=== PATIENT | male | born 1945 | race Caucasian/White ===

== ENCOUNTER 2019-03-04 12:16 | Emergency (ER) | payer OTHER ==
[2019-03-04 12:25] VITALS: TEMP 97.5; BMI 26.4
--- NOTE | 2019-03-04 13:20 | PDOC ---
History of Present Illness - History of Present Illness Initial Comments: 03/04/19 13:21 73 year old man with a history of distant prostate cancer (post resection) who presents with 3 days of swelling and skin change in the L lower extremity from knee to ankle. 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 He does not have good follow up with primary care and has not seen a doctor in years and takes no medications. However today he was concerned as his calf had some pain that he went to his PCP Dr. Shah who was concerning for dvt vs thrombophelbitis and sent him to the ER. THe kumar has no other ocmplaints at this [facility] ROS GENERAL/CONSTITUTIONAL: No fever or chills. No weakness. HEAD, EYES, EARS, NOSE AND THROAT: No change in vision. No ear pain or discharge. No sore throat. CARDIOVASCULAR: No chest pain or shortness of breath RESPIRATORY: No cough, wheezing, or hemoptysis. GASTROINTESTINAL: No nausea, vomiting, diarrhea or constipation. GENITOURINARY: No dysuria, frequency, or change in urination. MUSCULOSKELETAL: + joint or muscle swelling or pain. No neck or back pain. SKIN: No rash PE GENERAL: Awake, alert, and fully oriented, in no acute distress HEAD: No signs of trauma, normocephalic, atraumatic EYES: EOMI, sclera anicteric, conjunctiva clear ENT: oropharynx clear without exudates. Moist mucosa NECK: Normal ROM, supple LUNGS: No distress, speaks full sentences, clear to auscultation bilaterally HEART: Regular rate and rhythm, normal S1 and S2, no murmurs, rubs or gallops, peripheral pulses normal and equal bilaterally. ABDOMEN: Soft, nontender, normoactive bowel sounds. No guarding, no rebound. No masses EXTREMITIES : + good popliteal and dorsalis pedis pulses, some darkening of the skin around the medial heel, + mild tenderness to mid tibial bone palpation, nv intact NEUROLOGICAL: Cranial nerves II through XII grossly intact. Normal speech, normal gait, no focal sensorimotor deficits SKIN: Warm, Dry, normal turgor, no rashes or lesions noted MDM DDX including but not limited to: dvt vs thrombophlebitis r/o fx ED Course: NV intact with some skin changes, swellling and pain will duplex and do basic bloods labs wnl duplex with complex mac cyst on L popliteal he has good popliteal pulse will d./c with pcpc and vascular f/u Daughter present as bedside now. Expresses concern over possible cardiac pathology Patient reports a history of year or more of shortness of breath that has not acutely worsened but has remained the same. Per daughter she is concerned that his symptoms are worsening and requests a cardiac workup. Dr. Shah called and informed of patient family concerns, reports EKG done this morning had no ischemic changes. Family persistently concerned. Will pursue ekg, trop add on and ekg Ekg: with sinus rhythm at 71bpm, L anterior fasc block, no ST elevations Patient daughter continues to express concern although patient is asymptomatic and wants patient to be admitted Dr. Shah called for admission. He does not feel admission is appropririate but given patient family concern agrees to CTA chest and D-dimer. If negative patient to follow up outpatient. Family agrees to this plan. Trop negative CXR with no acute pathology XR tib fib- negative d-dimer with mild elevation pending CTA chest Rula Dumas, PGY2 Emergency Medicine <Rula Dumas - Last Filed: 03/04/19 18:51> <Isatu Pearson - Last Filed: 03/04/19 20:35> - General Chief Complaint: Pain Stated Complaint: LF LEG PAIN Time Seen by Provider: 03/04/19 13:19 Past History - Past Medical History COPD: No - Immunization History Immunization Up to Date: Yes - Psycho Social/Smoking Cessation Hx Smoking History: Never smoked Have you smoked in the past 12 months: No Information on smoking cessation initiated: No Hx Alcohol Use: No Drug/Substance Use Hx: No <Rula Dumas - Last Filed: 03/04/19 18:51> <Isatu Pearson - Last Filed: 03/04/19 20:35> - Past Medical History Allergies/Adverse Reactions: Allergies Allergy/AdvReac Type Severity Reaction Status Date / Time No Known Allergies Allergy Verified 03/04/19 12:21 Home Medications: Ambulatory Orders NK [No Known Home Medication] 03/04/19 *Physical Exam - Vital Signs Last Vital Signs Temp Pulse Resp BP Pulse Ox 97.5 F L 73 18 131/89 95 03/04/19 12:21 03/04/19 12:21 03/04/19 12:21 03/04/19 12:21 03/04/19 12:21 <Rula Dumas - Last Filed: 03/04/19 18:51> - Vital Signs Last Vital Signs Temp Pulse Resp BP Pulse Ox 97.5 F L 71 17 127/71 95 03/04/19 12:21 03/04/19 16:49 03/04/19 16:49 03/04/19 16:49 03/04/19 16:49 <Isatu Pearson - Last Filed: 03/04/19 20:35> ED Treatment Course - LABORATORY CBC & Chemistry Diagram: 03/04/19 14:40 03/04/19 14:40 <Rula Dumas - Last Filed: 03/04/19 18:51> - LABORATORY CBC & Chemistry Diagram: 03/04/19 14:40 03/04/19 14:40 - ADDITIONAL ORDERS Additional order review: Laboratory Results 03/04/19 03/04/19 17:50 14:40 D-Dimer 612 H Sodium 139 Potassium 4.7 Chloride 108 H Carbon Dioxide 26 Anion Gap 5 L BUN 17.3 Creatinine 1.0 Est GFR (CKD-EPI)AfAm 86.76 Est GFR (CKD-EPI)NonAf 74.86 Random Glucose 90 Calcium 9.1 Total Bilirubin 0.6 AST 28 ALT 26 Alkaline Phosphatase 63 Troponin I < 0.02 Total Protein 6.7 Albumin 3.8 03/04/19 14:40 RBC 4.72 MCV 89.9 MCHC 34.8 RDW 12.9 MPV 7.1 L Neutrophils % 59.8 Lymphocytes % 28.1 Monocytes % 8.5 Eosinophils % 2.6 Basophils % 1.0 <Isatu Pearson - Last Filed: 03/04/19 20:35> Discharge - Discharge Information Problems reviewed: Yes - Admission No <Rula Dumas - Last Filed: 03/04/19 18:51> <Isatu Pearson - Last Filed: 03/04/19 20:35> - Discharge Information Clinical Impression/Diagnosis: Leg swelling Condition: Stable Disposition: HOME - Follow up/Referral Referrals: Juancho Shah MD [Primary Care Provider] - Charan Sandoval MD [Staff Physician] - Ronaldo Leigh MD [Non Staff, Medical] - - Patient Discharge Instructions Patient Printed Discharge Instructions: DI for Mac's Cyst Additional Instructions: You were seen in the ED for complaints of leg swelling and pain In the ED you were evaluated with labwork and ultrasound Your results showed normal blood work and a mac cyst The results of the CT scan were provided to you, there is no evidence of PE or any other problems. There does not appear to be an acute need for immediate hospitalization. You are advised to follow up with your Primary Care Physician within 1 week. You were given a referral to Vascular Surgery Return to the ED immediately if you experience worsening leg pain or swelling, numbness or tingling or any other concerning symptoms - Post Discharge Activity
[2019-03-04 14:49] LABS: EOS % 2.6 % (0-4.5); HEMATOCRIT 42.4 % (35.4-49); HEMOGLOBIN 14.7 GM/dL (11.7-16.9); LYMPH % 28.1 % (8-40); MCH 31.3 pg (25.7-33.7); MCHC 34.8 g/dl (32.0-35.9); MEAN CELL VOLUME 89.9 fl (80-96); MEAN PLT VOLUME 7.1 fl (7.5-11.1); MONO % 8.5 % (3.8-10.2); NEUT % 59.8 % (42.8-82.8); PLATELET COUNT 213 K/MM3 (134-434); RBC 4.72 M/mm3 (4.00-5.60); RDW 12.9 % (11.9-15.9); WHITE BLOOD COUNT 5.7 K/mm3 (4.0-10.0)
[2019-03-04 15:30] LABS: ALBUMIN 3.8 g/dl (3.4-5.0); ALK PHOS 63 U/L (45-117); ANION GAP 5 MMOL/L (8-16); BILIRUBIN,TOTAL 0.6 mg/dL (0.2-1); BLOOD UREA NITROGEN 17.3 mg/dL (7-18); CALCIUM 9.1 mg/dL (8.5-10.1); CHLORIDE 108 mmol/L (98-107); CO2 26 mmol/L (21-32); GLUCOSE,RANDOM 90 mg/dL (74-106); POTASSIUM 4.7 mmol/L (3.5-5.1); SGOT/AST 28 U/L (15-37); SGPT/ALT 26 U/L (13-61); SODIUM 139 mmol/L (136-145); TOT PROT 6.7 g/dl (6.4-8.2)
--- NOTE | 2019-03-04 16:01 | PDOC ---
Documentation entered by Rakesh Smith SCRIBE, acting as scribe for Rachelle Chawla MD. Rachelle Chawla MD: This documentation has been prepared by the Luis person Xhesika, SCRIBE, under my direction and personally reviewed by me in its entirety. I confirm that the documentation accurately reflects all work, treatment, procedures, and medical decision making performed by me. Attending Attestation - Resident Resident Name: Rula Dumas - ED Attending Attestation I have performed the following: I have examined & evaluated the patient, The case was reviewed & discussed with the resident, I agree w/resident's findings & plan, Exceptions are as noted - HPI HPI: 03/04/19 14:21 The patient is a 73 year old male with a significant PMH of distant prostate cancer (post resection) who presents to the emergency department from Dr. Shah office to r/o DVT. Pt reports 3 days of LLE swelling below the knee associated with pain on palpation and soreness. Pt notes he has been feeling SOB walking up the hill for the past year. Pt reports discoloration that initially started at his knee and is now at his L ankle. 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 reports family history of cardiac disease. The patient denies chest pain, headache and dizziness. Denies fever, chills, cough, nausea, vomiting, diarrhea and constipation. Denies dysuria, frequency, urgency and hematuria. Allergies: NKDA - Physicial Exam PE: 03/04/19 15:49 GENERAL: The patient is in no acute distress. ENT: Ears normal, nares patent, oropharynx clear without exudates. Moist mucous membranes. NECK: Normal range of motion, supple LUNGS: Breath sounds equal, clear to auscultation bilaterally. No wheezes, and no crackles. HEART:Regular rate and rhythm, normal S1 and S2 without murmur, rub or gallop. ABDOMEN: Soft, nontender, normoactive bowel sounds. EXTREMITIES: LLE edematous (non pitting), (+) varicosities noted, bruising noted near the medial heel, Normal range of motion at the hip, ankle, knee NEUROLOGICAL: Cranial nerves II through XII grossly intact. Normal speech. No focal neurological deficits. 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 job No other symptoms Pt was seen by his PMD who recommend he come to the ER for duplex 03/04/19 16:00 Laboratory Tests 03/04/19 14:40 BUN 17.3 Creatinine 1.0 Duplex negative Will plan to discharge to home Follow up with PMD 03/04/19 16:44 EKG: NSR rate of 71 bpm, LAD, LAFB, intervals: pr:232ms, QRS:86ms, QTc: 465ms, no st elevation or depression, t waves upright Pt family concerned about him going home Would like an expedited cardiac work up Pt daughter requesting D dimer and CTA chest (despite pt not having chest pain) I have explained that because he did not complain of chest pain and has reported 1 YEAR of TUCKER, our concern would not be for PE Pt is concerned that father tends to downplay his symptoms and has a strong family history of cardiac disease I have offered to admit them for expedited cardiac work up Call placed to Dr Shah who has refused to place him on observation, he has directly spoken to this patient's daughter Pending - d dimer, CTA Signed out to overnight team
[2019-03-04 16:50] VITALS: BP 127/71; PULSE 71
--- NOTE | 2019-03-05 11:54 | EKG ---
Test Reason : Blood Pressure : / mmHG Vent. Rate : 071 BPM Atrial Rate : 071 BPM P-R Int : 232 ms QRS Dur : 086 ms QT Int : 428 ms P-R-T Axes : 010 -52 004 degrees QTc Int : 465 ms POOR DATA QUALITY, INTERPRETATION MAY BE ADVERSELY AFFECTED SINUS RHYTHM WITH 1ST DEGREE A-V BLOCK WITH PREMATURE ATRIAL COMPLEXES LEFT ANTERIOR FASCICULAR BLOCK ABNORMAL ECG NO PREVIOUS ECGS AVAILABLE Confirmed by LISA COPE, CEFERINO ([id number]) on 03/05/2019 11:54:23 AM Referred By: Confirmed By:CEFERINO GONZALEZ MD
== END 2019-03-04 20:54 | disposition home or self-care (01) ==
LOC: JER 12:16
DX: M71.22 Synovial cyst of popliteal space [Baker], left knee (principal); Z85.46 Personal history of malignant neoplasm of prostate
CPT/HCPCS: 36415; 71045-TC-FY; 71275-TC; 73590-TC-LT-FY; 80053; 84484; 85025; 85379; 93005; 93010; 93970-TC; 99283-25; Q9967